=== PATIENT | female | born 1955 | race African-American/Black ===

== ENCOUNTER 2017-09-28 18:20 | Emergency (ER) | payer BC, MEDICAID ==
[~2017-09-28] VITALS: Ht 160 cm; Wt 86.2 kg
[~2017-09-28 18:20] MED LIST: AZITHROMYCIN250 MG ORAL; BENAZEPRIL HCL5 MG ORAL; FLAGYL500 MG ORAL; GABAPENTIN800 MG ORAL; NORCO 5-325 TA1 EACH ORAL; VERAPAMIL ER240 M2 PO
[2017-09-28] MEDS ORDERED: Albuterol ud Inhalation HHN ONE ×2 (19:00→19:15)
[2017-09-28] MEDS ORDERED: Ipratropium 0.02% Inh Soln 2.5ml UD HHN ONE ×2 (19:00→19:15)
[2017-09-28 19:15] VITALS: BP 129/71
[2017-09-28] MEDS ORDERED: AMOXICILLIN500 MG ORAL (20:01)
[2017-09-28] MEDS ORDERED: PREDNISONE20 MG ORAL (20:01)
[2017-09-28] MEDS ORDERED: ALBUTEROL SULF8.5 GM INH (20:01)
[2017-09-28] MEDS ORDERED: PROMETHAZINE-C118 M1 ORAL (20:01)
[2017-09-28 20:10] VITALS: BP 121/69
--- NOTE | 2017-09-29 11:51 | Diagnostic Imaging Report ---
Indication: Cough Comparison: 03/01/2016 A single view chest radiograph was obtained. Findings: There is enlargement of the cardiac silhouette with mild pulmonary vascular redistribution and prominence, hazy vessel margins and the suggestion of interstitial edema consistent with CHF. IMPRESSION: Suspected mild interstitial edema/CHF
--- NOTE | 2017-09-29 13:12 | Emergency Room Report ---
History of Present Illness General Chief Complaint: Upper Respiratory Illness Source: Patient Present Illness HPI 62-year-old female presents ED complaining of bodyaches, cough, weakness. Times one week. Cough is productive with yellowish phlegm. Denies fevers or chills. Afebrile in triage. Denies chest pain. Denies history of asthma or smoking. No other aggravating relieving factors. Denies any other associated symptoms Allergies: Coded Allergies: No Known Allergies (Unverified , 05/01/14) Patient History Past Medical History: HTN Past Surgical History: none Pertinent Family History: none Social History: Denies: smoking, alcohol use, drug use Now: No Immunizations: UTD Reviewed Nursing Documentation: PMH: Agreed, PSxH: Agreed Nursing Documentation-PMH Hx Cardiac Problems: Yes Hx Hypertension: Yes Hx Neurological Problems: No Review of Systems All Other Systems: negative except mentioned in HPI Physical Exam Vital Signs Date Time Temp Pulse Resp B/P (MAP) Pulse Ox O2 Delivery O2 Flow Rate FiO2 09/28/17 18:30 97.7 73 20 129/71 97 Room Air Sp02 EP Interpretation: reviewed, normal General Appearance: no apparent distress, alert, GCS 15, non-toxic Head: normocephalic, atraumatic Eyes: bilateral eye normal inspection, bilateral eye PERRL ENT: hearing grossly normal, normal pharynx, no angioedema, normal voice Neck: full range of motion, supple/symm/no masses Respiratory: chest non-tender, speaking full sentences, wheezing Cardiovascular #1: regular rate, rhythm, no edema Cardiovascular #2: 2+ carotid (R), 2+ carotid (L), 2+ radial (R), 2+ radial (L) , 2+ dorsalis pedis (R), 2+ dorsalis pedis (L) Gastrointestinal: normal bowel sounds, non tender, soft, non-distended, no guarding, no rebound Rectal: deferred Genitourinary: normal inspection, no CVA tenderness Musculoskeletal: back normal, gait/station normal, normal range of motion, non- tender Neurologic: alert, oriented x3, responsive, motor strength/tone normal, sensory intact, speech normal Psychiatric: judgement/insight normal, memory normal, mood/affect normal, no suicidal/homicidal ideation Reflexes: 3+ bicep (R), 3+ bicep (L), 3+ tricep (R), 3+ tricep (L), 3+ knee (R) , 3+ knee (L) Skin: normal color, no rash, warm/dry, well hydrated Lymphatic: no adenopathy Medical Decision Making Diagnostic Impression: Primary Impression: Atypical pneumonia ER Course Hospital Course 62-year-old female presents to ED complaining of cough, wheezing Differential diagnoses include: URI, bronchitis, asthma/COPD, pneumonia Clinical course Patient placed on stretcher. After initial history and physical I ordered prednisone and nebulizer treatment. Chest x-ray shows interstitial changes unable to rule out pneumonia Upon reassessment patient states cough and symptoms have improved. We will treat as atypical pneumonia and prescribe antibiotics Diagnosis - atypical pneumonia Stable and discharged home with prescriptions for Rx albuterol, prednisone, amoxicillin, promethazine/codeine. Instructed to followup with PMD. Return to ED if symptoms recur or worsen Chest X-Ray Diagnostic Results Chest X-Ray Diagnostic Results : Chest X-Ray Ordered: Yes # of Views/Limited/Complete: 1 View Indication: Other - cough Interpretation: no pneumothorax, other - interstitial edema Impression: Other - interstitial edema Electronically Signed by: Electronically signed by Derick Flores MD Last Vital Signs Date Time Temp Pulse Resp B/P (MAP) Pulse Ox O2 Delivery O2 Flow Rate FiO2 09/28/17 20:10 98.1 82 15 121/69 98 Room Air Status: improved Disposition: HOME, SELF-CARE Condition: Stable Scripts Albuterol Sulfate* (ALBUTEROL SULFATE MDI*) 8.5 Gm Hfa.aer.ad 2 PUFF INH Q6H, #1 EA 0 Refills Prov: DERICK FLORES M.D. 09/28/17 Codeine/Promethazine Hcl* (PROMETHAZINE-CODEINE SYRUP*) 118 Ml Syrup 5 ML ORAL Q6H Y for For Cough, #118 ML 0 Refills Prov: DERICK FLORES M.D. 09/28/17 Amoxicillin* (AMOXIL*) 500 Mg Capsule 500 MG ORAL THREE TIMES A DAY, #21 CAP Prov: DERICK FLORES M.D. 09/28/17 Prednisone* (PREDNISONE*) 20 Mg Tablet 40 MG ORAL DAILY, #10 TAB Prov: DERICK FLORES M.D. 09/28/17 [facility] Patient Instructions: Community-Acquired Pneumonia, Adult, [id number] DERICK FLORES M.D. Sep 29, 2017 13:12
== END 2017-09-28 20:10 | disposition home or self-care (01) ==
LOC: EMR 18:45
DX: J18.9 Pneumonia, unspecified organism (principal); I10 Essential (primary) hypertension
CPT/HCPCS: 71045; 94640; 94664; 99284; J7512

== ENCOUNTER 2018-07-29 13:28 | Emergency (ER) | payer BC, MEDICAID ==
[~2018-07-29] VITALS: Ht 154.9 cm; Wt 111.1 kg
[~2018-07-29 13:28] MED LIST changes: +ALBUTEROL SULF8.5 GM INH; +AMOXICILLIN500 MG ORAL; +PREDNISONE20 MG ORAL; +PROMETHAZINE-C118 M1 ORAL
[2018-07-29 13:35] VITALS: BP 154/80
[2018-07-29] MEDS ORDERED: Acetaminophen 500mg (ES) tab ORAL ONE (14:00)
--- NOTE | 2018-07-29 14:23 | Emergency Room Report ---
History of Present Illness General Chief Complaint: Back Pain-No Injury Source: Patient, Medical Record Present Illness HPI 64-year-old female with history of psoriasis currently controlled, here for 1 week of left lower back pain. Reporting the pain intermittent and 7 out of 10 without radiation. She denies fall or injury however does report carrying heavy boxes few weeks ago. Denies urinary/bowel incontinence, saddle paresthesia. Denies dysuria, urinary frequency, fever/chills, nausea or vomiting. 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 Denies chest pain, SOB, palpitation, abdominal pain, and all other associated symptoms. Allergies: Coded Allergies: No Known Allergies (Unverified , 07/29/18) Patient History Past Medical History: see triage record Now: No Immunizations: UTD Reviewed Nursing Documentation: PMH: Agreed; PSxH: Agreed Nursing Documentation-PMH Past Medical History: No History, Except For Hx Cardiac Problems: Yes Hx Hypertension: Yes Hx Neurological Problems: No Review of Systems All Other Systems: negative except mentioned in HPI Physical Exam Vital Signs Date Time Temp Pulse Resp B/P (MAP) Pulse Ox O2 Delivery O2 Flow Rate FiO2 07/29/18 13:35 97.9 68 15 154/80 95 Room Air Sp02 EP Interpretation: reviewed, normal General Appearance: normal inspection, well appearing, no apparent distress, alert Head: normocephalic, atraumatic Eyes: bilateral eye normal inspection, bilateral eye PERRL ENT: normal ENT inspection, hearing grossly normal Neck: normal inspection, full range of motion, supple Respiratory: normal inspection, lungs clear, no rhonchi, no retraction, no wheezing Cardiovascular #1: normal inspection, normal peripheral pulses, no edema, no murmur Gastrointestinal: normal inspection, non tender, soft, no mass Rectal: deferred Genitourinary: no CVA tenderness Musculoskeletal: digits/nails normal, gait/station normal, normal range of motion, other - multiple psoriatic lesions on lumbar and sacral spine, tender - left lumbar Neurologic: normal inspection, alert, oriented x3, responsive Psychiatric: normal inspection, judgement/insight normal, memory normal Skin: warm/dry, well hydrated, rash - posiriatic lesions lumbar, thoracic, sacral regions Lymphatic: normal inspection, no adenopathy Medical Decision Making PA Attestation all diagnoses and treatment plans were reviewed and discussed with my supervising physician Dr. Jain Diagnostic Impression: Primary Impression: Muscle strain Additional Impression: Psoriatic arthritis ER Course 64-year-old female with history of psoriasis currently controlled, here for 1 week of left lower back pain. Reporting the pain intermittent and 7 out of 10 without radiation. She denies fall or injury however does report carrying heavy boxes few weeks ago. Denies urinary/bowel incontinence, saddle paresthesia. Denies dysuria, urinary frequency, fever/chills, nausea or vomiting. 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 Denies chest pain, SOB, palpitation, abdominal pain, and all other associated symptoms. Ddx considered but are not limited to muscle strain, psoriatic arthritis of lower back, lumbar spine disc injury Vital signs: are WNL, pt. is afebrile H&PE are most consistent with muscle strain, psoriatic arthritis ORDERS: UA, lumbar spine Xray, tylenol 500 ED INTERVENTIONS: Tylenol 500 DISCHARGE: At this time pt. is stable for d/c to home. Will provide printed patient care instructions, and any necessary prescriptions. Care plan and follow up instructions have been discussed with the patient prior to discharge. negative UA Other X-Ray Diagnostic Results Other X-Ray Diagnostic Results : X-Ray ordered: lumbar spine # of Views/Limited Vs Complete: 2 View Indication: Swelling EP Interpretation: Yes PA Xray: Interpretation reviewed, by supervising MD, and agrees with findings. Interpretation: no dislocation, no soft tissue swelling, no fractures Impression: No acute disease Electronically Signed by: Tony CHIRINOS [employer] Text FINDINGS: Vertebrae: Grade 1 anterolisthesis of L4 on L5 likely degenerative. No acute fracture. Mild anterior osteophytes. Vertebral body heights are maintained. Disc spaces: Mild L5-S1 disc space narrowing. Soft tissues: Unremarkable. Vasculature: Atherosclerotic vascular disease. Phlebolith in the pelvis. IMPRESSION: 1. No acute fracture. 2. Grade 1 anterolisthesis of L4 on L5 likely degenerative Last Vital Signs Date Time Temp Pulse Resp B/P (MAP) Pulse Ox O2 Delivery O2 Flow Rate FiO2 07/29/18 13:35 97.9 68 15 154/80 95 Room Air Disposition: HOME, SELF-CARE Condition: Stable Scripts Naproxen* (NAPROXEN*) 500 Mg Tablet 500 MG ORAL TWICE A DAY, #30 TAB Prov: Tony Sotomayor 07/29/18 Patient Instructions: Arthritis, [id number], Back Pain, Adult Additional Instructions: follow-up with [facility] behavioral health, take NSAIDs as directed, RICE guidellines. Tony Sotomayor Jul 29, 2018 14:23
[2018-07-29 14:32] LABS: BILIRUBIN, URINE NEGATIVE (NEGATIVE); COLOR,URINE PALE YELLOW; GLUCOSE, URINE (UA) NEGATIVE (NEGATIVE); KETONES,URINE NEGATIVE (NEGATIVE); LEUKOCYTE ESTERASE ,URINE NEGATIVE (NEGATIVE); NITRITE,URINE NEGATIVE (NEGATIVE); PH,URINE 6 (4.5-8.0); PROTEIN,URINE NEGATIVE (NEGATIVE); UROBILINOGEN,URINE NORMAL MG/DL (0.0-1.0)
[2018-07-29 14:33] LABS: APPEARANCE,URINE CLEAR
[2018-07-29] MEDS ORDERED: NAPROXEN500 M2 ORAL (15:01)
[2018-07-29 15:09] VITALS: BP 154/80
--- NOTE | 2018-07-29 15:28 | Diagnostic Imaging Report ---
EXAM: XR Lumbar Spine, 2 or 3 Views CLINICAL HISTORY: PAIN TECHNIQUE: Frontal and lateral views of the lumbar spine. COMPARISON: No relevant prior studies available. FINDINGS: Vertebrae: Grade 1 anterolisthesis of L4 on L5 likely degenerative. No acute fracture. Mild anterior osteophytes. Vertebral body heights are maintained. Disc spaces: Mild L5-S1 disc space narrowing. Soft tissues: Unremarkable. Vasculature: Atherosclerotic vascular disease. Phlebolith in the pelvis. IMPRESSION: 1. No acute fracture. 2. Grade 1 anterolisthesis of L4 on L5 likely degenerative.
== END 2018-07-29 15:07 | disposition home or self-care (01) ==
LOC: EMR 14:00
DX: S39.012A Strain of muscle, fascia and tendon of lower back, initial encounter (principal); X50.0XXA Overexertion from strenuous movement or load, initial encounter; Y92.9 Unspecified place or not applicable; L40.50 Arthropathic psoriasis, unspecified; I10 Essential (primary) hypertension
CPT/HCPCS: 72020; 81001; 99283